=== PATIENT | male | born 1995 | race Caucasian/White ===

== ENCOUNTER 2018-04-19 18:53 | Emergency (ER) | payer SELFPAY ==
[2018-04-19 18:59] VITALS: BP 119/69; PULSE 70; RESP 16; TEMP 97.9; O2SAT 100
--- NOTE | 2018-04-19 19:20 | C.PDOC ---
History Of Present Illness 23 y/o male with no PMH presents to the ED c/o right gluteal cleft pain x 1 month. Patient states that he visited his PMD over 1 month ago, and was given unknown creams for the problem without relief. Pain is achey and worse when he touches the area. Pt is having BM per baseline, last yesterday. Denies fever, chills, drainage, rectal pain, back pain, abdominal pain, N/V, urinary symptoms, or any other associated symptoms. Time Seen by Provider: 04/19/18 18:58 Chief Complaint (Nursing): Abnormal Skin Integrity History Per: Patient History/Exam Limitations: no limitations Onset/Duration Of Symptoms: Days Current Symptoms Are (Timing): Still Present Location Of Injury: Left: Buttock Quality Of Symptoms: Painful Severity: Mild Recent travel outside of the [place]: No Past Medical History Vital Signs: Last Vital Signs Temp 97.9 F 04/19/18 18:56 Pulse 70 04/19/18 18:56 Resp 16 04/19/18 18:56 BP 119/69 04/19/18 18:56 Pulse Ox 100 04/19/18 18:56 Family History: States: Unknown Family Hx - Social History Hx Alcohol Use: Yes Hx Substance Use: No - Immunization History Hx Tetanus Toxoid Vaccination: (unk) Hx Influenza Vaccination: No Hx Pneumococcal Vaccination: (unk) Physical Exam - Physical Exam Appears: Well, No Acute Distress Skin: Normal Color, Warm, Dry Head: Atraumatic, Normacephalic, No Tenderness Eye(s): bilateral: Normal Inspection, PERRL, EOMI Nose: Normal Oral Mucosa: Moist Neck: Normal, Normal ROM, Supple Cardiovascular: Rhythm Regular Respiratory: Normal Breath Sounds Gastrointestinal/Abdominal: Normal Exam, Bowel Sounds (normoactive), Soft, No Tenderness Rectal: Normal Exam, Rectal Tone (normal), Hemorrhoids, No Mass Back: Other (2cm long area of induration to the left side of the top of the gluteal cleft, with associated mild erythema and tenderness; suspicious for pilonidal disease. NO fluctuance or streaking noted. Normal rectal exam.) Extremity: Normal ROM Extremity: Bilateral: Atraumatic, No Pedal Edema, Normal Color And Temperature, Normal ROM Pulses: Left Radial: Normal, Right Radial: Normal, Left Dorsalis Pedis: Normal, Right Dorsalis Pedis: Normal Neurological/Psych: Oriented x3, Normal Speech, Normal Cognition, Normal Motor, Normal Sensation Gait: Steady ED Course And Treatment O2 Sat by Pulse Oximetry: 100 Medical Decision Making Medical Decision Making: Discussed in depth with patient the fact that the area is not ready to drain secondary to lack of fluctuance. Pt agrees that area is not fluctuant and has only been hard to touch. Denies drainage from the area. Verbalizes understanding of the importance of warm compress, antibiotic use, and general surgery followup. States he will call the provided surgeons tomorrow to schedule an appointment and will take antibiotics in the meantime. Plan of care discussed with patient, and strict instructions given regarding prescriptions, importance of follow up, and signs to return to Emergency Department, to include fever, chills, difficulty with bowel movements, rectal pain, or any other new/worsening symptoms. Patient verbalizes understanding of discussion. Patient A&Ox3, ambulating with steady gait, stable for discharge home. Disposition - Disposition Referrals: Sony Ibrahim MD [Staff Provider] - Zac Johnson Jr., MD [Staff Provider] - [facility] [Outside] Disposition: HOME/ ROUTINE Disposition Time: 19:16 Condition: STABLE Additional Instructions: Warm compresses or sitz baths 4-5 times daily for 10-20minutes at a time Bactrim every 12 hours for 7 days Keflex every 6 hours for 7 days Bacitracin ointment daily Naproxen with food daily as needed for pain Followup with general surgery tomorrow Followup with primary doctor or clinic within 2 days Return to ER with any new/worsening symptoms Prescriptions: Bacitracin Ointment [Bacitracin] 1 appl TD DAILY #1 tube Cephalexin [cephalexin] 500 mg PO Q6H #28 cap Naproxen [Naprosyn] 500 mg PO DAILY PRN #14 tablet PRN Reason: Pain, Moderate (4-7) Sulfamethoxazole/Trimethoprim [Bactrim DS 800 mg-160 mg] 1 tab PO Q12H #14 tab Instructions: Skin Abscess, Pilonidal Cyst (DC), How to Do a Sitz Bath Forms: General Discharge Instructions, [facility] ([facility]), Work Excuse - Clinical Impression Clinical Impression: Pilonidal disease
== END 2018-04-19 19:37 | disposition home or self-care (01) ==
LOC: C.ER 18:53
DX: L98.8 Other specified disorders of the skin and subcutaneous tissue (principal)